=== PATIENT | male | born 1970 ===

== ENCOUNTER 2017-08-12 07:29 | Emergency (ER) | payer MEDICAID ==
--- NOTE | 2017-08-12 07:53 | C.PDOC ---
History Of Present Illness Patient is a 47 year old male, with no significant past medical history, presents to ED with complaints of feeling a lump sensation after eating in the center of his chest that developed yesterday afternoon and has been persistent since noon yesterday, exacerbated by food and eating, no alleviating factors. Notes that it feels worse after coughing, and with food intake. Denies diaphoresis, shortness of breath, abdominal pain, n/v/d, or fever. Time Seen by Provider: 08/12/17 07:51 Chief Complaint (Nursing): Abdominal Pain History Per: Patient History/Exam Limitations: no limitations Onset/Duration Of Symptoms: Days Current Symptoms Are (Timing): Still Present Associated Symptoms: denies: Nausea, Vomiting, Diarrhea, Loss Of Appetite, Back Pain Exacerbating Factors: Cough, Food Alleviating Factors: None Recent travel outside of the [place]: No Additional History Per: Patient Past Medical History Reviewed: Historical Data, Nursing Documentation, Vital Signs Vital Signs: Last Vital Signs Temp 97.5 F L 08/12/17 07:43 Pulse 83 08/12/17 07:43 Resp 18 08/12/17 07:43 BP 150/89 08/12/17 07:43 Pulse Ox 98 08/12/17 09:20 - Medical History PMH: No Chronic Diseases Family History: States: No Known Family Hx Review Of Systems Constitutional: Negative for: Fever, Chills Cardiovascular: Positive for: Chest Pain (lump sensation in his chest). Negative for: Palpitations, Edema, Light Headedness Respiratory: Negative for: Shortness of Breath, Sputum Gastrointestinal: Negative for: Nausea, Vomiting, Abdominal Pain, Diarrhea Neurological: Negative for: Headache, Dizziness Physical Exam - Physical Exam Appears: Non-toxic, No Acute Distress Skin: Normal Color, Warm, Dry Head: Atraumatic, Normacephalic Eye(s): bilateral: Normal Inspection Oral Mucosa: Moist, Other (no thrush) Tongue: Normal Appearing Lips: Normal Appearing Neck: Supple Chest: Symmetrical, No Tenderness Cardiovascular: Rhythm Regular, No Murmur Respiratory: Normal Breath Sounds, No Rales, No Rhonchi, No Wheezing Gastrointestinal/Abdominal: Bowel Sounds, Soft, No Tenderness Extremity: Normal ROM, No Pedal Edema, No Calf Tenderness Neurological/Psych: Oriented x3, Normal Speech, Normal Cognition, Normal Motor, Normal Sensation ED Course And Treatment - Laboratory Results Result Diagrams: 08/12/17 08:14 08/12/17 08:14 ECG: Interpreted By Me, Viewed By Me ECG Rhythm: Sinus Rhythm ECG Interpretation: Normal Rate From EC (bpm) O2 Sat by Pulse Oximetry: 98 (RA) Pulse Ox Interpretation: Normal Medical Decision Making Medical Decision Making: Blood work, EKG, CXR ordered and reviewed. Patient was given Maalox. 921 pm p[t feeling decreased discomfort after maalox, lab tests reviewed with patient; he has been told he is borderline diabetic, advised to f/u with pmd benny for hgA1c and fasting glucose. pt advised to keep food diary, avoid caffeine, spicy food, etc, take pepcid as prescribed and to f/u with pmd and gi. pt and family agree to and understands plan. Heart score reviewed; pt has 2, wiull d/c- normal ekg, low suspicion, no fam hx of cad, neg trop after 20 hrs continuous discomfort. Disposition Counseled Patient/Family Regarding: Studies Performed, Diagnosis, Need For Followup, Rx Given - Disposition Referrals: Benjamín Vu MD [Staff Provider] - Shannen Hoang MD [Non-Staff] - [facility] [Outside] Disposition: HOME/ ROUTINE Disposition Time: 09:27 Condition: STABLE Additional Instructions: Please follow up in medical clinic or with your PMD and have your blood glucose tested. FOllow up with bulk loader and with rubber curer- call for appointments. Keep food diary. Avoid bothersome foods, coffee. Take Pepcid as prescribed. Return to ER for chest pain, shortness of breath/difficulty breathing, or any other concerning symptoms. Prescriptions: Famotidine [Pepcid] 20 mg PO DAILY #14 tab Instructions: Diet for Ulcers and Gastritis (ED), Gastroesophageal Reflux Disease (ED) Forms: [facility] (Sami), General Discharge Instructions - Clinical Impression Clinical Impression: Reflux esophagitis - PA / MARKETING CONSULTANT / Resident Statement MD/DO has reviewed & agrees with the documentation as recorded. - Scribe Statement The provider has reviewed the documentation as recorded by the Cashibe Terrence Montero All medical record entries made by the Scribe were at my direction and personally dictated by me. I have reviewed the chart and agree that the record accurately reflects my personal performance of the history, physical exam, medical decision making, and the department course for this patient. I have also personally directed, reviewed, and agree with the discharge instructions and disposition.
[2017-08-12] MEDS ORDERED: Aluminum Hydroxide/Magnesium Hydroxide Susp (30 mL) ONE (08:01)
[2017-08-12] MEDS ORDERED: Aluminum Hydroxide/Magnesium Hydroxide Susp (30 mL) PO STA (08:07)
--- NOTE | 2017-08-12 08:19 | RAD ---
HISTORY: chest pain COMPARISON: No prior. TECHNIQUE: Chest PA and lateral FINDINGS: LUNGS: No active pulmonary disease. PLEURA: No significant pleural effusion identified. No pneumothorax apparent. CARDIOVASCULAR: Normal. OSSEOUS STRUCTURES: Thoracic spondylosis VISUALIZED UPPER ABDOMEN: Normal. OTHER FINDINGS: None. IMPRESSION: No active disease
[2017-08-12 08:27] LABS: BASO % 0.5 % (0.0-2.0); EOS # 0.2 K/uL (0.0-0.7); HEMATOCRIT 44.5 % (35.0-51.0); LYMPH # 1.2 K/uL (1.0-4.3); LYMPH % 14.4 % (20.0-40.0); MEAN CELL VOLUME 91.9 fL (80.0-94.0); MEAN CORPUSCULAR HEMOGLOBIN 32.3 pg (27.0-31.0); MEAN CORPUSCULAR HGB CONC 35.2 g/dL (33.0-37.0); MONO % 11.6 % (0.0-10.0); RED CELL DISTRIBUTION WIDTH 12.2 % (11.5-14.5); WHITE BLOOD COUNT 8.4 K/uL (4.8-10.8)
[2017-08-12 08:37] LABS: ALKALINE PHOSPHATASE 76 U/L (38-126); ALT/SGPT 65 U/L (21-72); AST/SGOT 53 U/L (17-59); BLOOD UREA NITROGEN 12 mg/dL (9-20); CALCIUM 8.6 mg/dl (8.6-10.4); CARBON DIOXIDE 31 mmol/L (22-30); CHLORIDE 94 mmol/L (98-107); GFR AFRICAN-AMERICAN > 60; GLUCOSE,RANDOM 171 mg/dL (75-110); POTASSIUM 3.9 mmol/L (3.6-5.2); SODIUM 133 mmol/L (132-148); TOTAL PROTEIN 8.5 g/dL (6.3-8.3)
[2017-08-12 08:41] LABS: ALB/GLOB RATIO 1.1 (1.0-2.1)
[2017-08-12 09:43] VITALS: BP 148/89; PULSE 72; RESP 16; TEMP 97.9; O2SAT 99
--- NOTE | 2017-08-13 23:33 | CARD ---
APPROVED REPORT EKG Measurement Heart [id number] <Conclusion> Normal sinus rhythm Normal ECG
== END 2017-08-12 09:42 | disposition home or self-care (01) ==
LOC: C.ER 07:29
DX: K21.0 Gastro-esophageal reflux disease with esophagitis (principal)

== ENCOUNTER 2017-11-02 09:24 | Emergency (ER) | payer MEDICAID ==
[2017-11-02 09:37] VITALS: BP 146/86; PULSE 99; RESP 20; TEMP 97.9; O2SAT 99
--- NOTE | 2017-11-02 10:08 | C.PDOC ---
History Of Present Illness 47yo male otherwise well, presents to ER with complaints of dental pain reported as 10/10 for the past couple days. Patient has not followed up with a dentist as he does not have medical insurance. He states the pain is localized to his upper left molar region with pain to his gums. He denies any fever, chills, nausea or vomiting. No other complaints. Time Seen by Provider: 11/02/17 09:39 Chief Complaint (Nursing): Dental Pain History Per: Patient History/Exam Limitations: no limitations Onset/Duration Of Symptoms: Days Current Symptoms Are (Timing): Still Present Pain Scale Rating Of: 10 Quality: Positive for: "Pain" Past Medical History Reviewed: Historical Data, Nursing Documentation, Vital Signs Vital Signs: Last Vital Signs Temp 97.9 F 11/02/17 09:32 Pulse 99 H 11/02/17 09:32 Resp 20 11/02/17 09:32 BP 146/86 11/02/17 09:32 Pulse Ox 99 11/02/17 10:08 - Medical History PMH: No Chronic Diseases Surgical History: No Surg Hx Family History: States: No Known Family Hx - Social History Hx Alcohol Use: Yes Hx Substance Use: No - Immunization History Hx Tetanus Toxoid Vaccination: No Hx Influenza Vaccination: No Hx Pneumococcal Vaccination: No Review Of Systems Except As Marked, All Systems Reviewed And Found Negative. Constitutional: Negative for: Fever, Chills ENT: Positive for: Other (dental pain) Gastrointestinal: Negative for: Nausea, Vomiting Physical Exam - Physical Exam Appears: Non-toxic Skin: Normal Color, Warm, Dry Head: Normacephalic Eye(s): bilateral: Normal Inspection Oral Mucosa: Moist Teeth: No Caries, Other (no significant abscess, fluctuance, drainage or broken teeth noted.) Gingiva: Normal Appearing, No Erythema, No Tender, No Abscess Neck: Normal ROM, Supple Chest: Symmetrical Cardiovascular: Rhythm Regular Respiratory: Normal Breath Sounds Neurological/Psych: Oriented x3 ED Course And Treatment O2 Sat by Pulse Oximetry: 99 (RA) Pulse Ox Interpretation: Normal Medical Decision Making Medical Decision Making: Impression: Dental pain Plan: -- Motrin 600 mg PO -- Penicillin 1000mg PO -- Tramadol 50 mg PO Patient to be discharged home with referral to a dentist, antibiotics and instructions to follow up in 2-3 days. Disposition Counseled Patient/Family Regarding: Diagnosis, Need For Followup, Rx Given - Disposition Disposition: HOME/ ROUTINE Disposition Time: 10:05 Condition: STABLE Additional Instructions: Follow up with a dentist Prescriptions: Ibuprofen [Motrin] 600 mg PO TID #15 tab Penicillin VK [Penicillin VK Tab] 500 mg PO Q6H #40 tab traMADol [Ultram] 50 mg PO TID #15 tab Instructions: Dental Pain (DC) Forms: General Discharge Instructions, [facility] (Setswana), Work Excuse - POA Present On Arrival: None - Clinical Impression Clinical Impression: Dental caries - Scribe Statement The provider has reviewed the documentation as recorded by the Scribe (Yumiko Lay) Provider Attestation: All medical record entries made by the Scribe were at my direction and personally dictated by me. I have reviewed the chart and agree that the record accurately reflects my personal performance of the history, physical exam, medical decision making, and the department course for this patient. I have also personally directed, reviewed, and agree with the discharge instructions and disposition.
== END 2017-11-02 10:22 | disposition home or self-care (01) ==
LOC: C.ER 09:24
DX: K02.9 Dental caries, unspecified (principal)

== ENCOUNTER 2018-07-04 08:26 | Emergency (ER) | payer MEDICAID ==
[2018-07-04 08:39] VITALS: BP 134/74; PULSE 99; RESP 20; TEMP 97.7; O2SAT 98
--- NOTE | 2018-07-04 09:09 | C.PDOC ---
History Of Present Illness 48 y/o male presents to ED for evaluation of left sided headache described as "few seconds of shock like pain" intermittently for the last 2 days. Notes he has had similar episodes multiple times over the past several years. Pt states he has remote history of trauma to that side of the head. Denies headache at this time. Denies visual changes, nausea, vomiting, dizziness, weakness, numbness, change in sensation, stiff neck, fever, chills, or any other associated symptoms at this time. Time Seen by Provider: 07/04/18 08:39 Chief Complaint (Nursing): Headache History Per: Patient History/Exam Limitations: no limitations Onset/Duration Of Symptoms: Days, Intermittent Episodes Current Symptoms Are (Timing): Still Present Quality: Sharp Preceeding Symptoms: None. denies: Visual Disturbances Associated Symptoms: denies: Photophobia, Blurred Vision, Nausea, Vomiting, Extremity Weakness Recent travel outside of the [place]: No Additional History Per: Patient Past Medical History Reviewed: Historical Data, Nursing Documentation, Vital Signs Vital Signs: Last Vital Signs Temp 97.7 F 07/04/18 08:35 Pulse 99 H 07/04/18 08:35 Resp 20 07/04/18 08:35 BP 134/74 07/04/18 08:35 Pulse Ox 98 07/04/18 08:35 Family History: States: Unknown Family Hx - Social History Hx Alcohol Use: Yes Hx Substance Use: No - Immunization History Hx Tetanus Toxoid Vaccination: No Hx Influenza Vaccination: No Hx Pneumococcal Vaccination: No Review Of Systems Constitutional: Negative for: Fever, Chills Eyes: Negative for: Vision Change Cardiovascular: Negative for: Chest Pain, Palpitations Respiratory: Negative for: Cough, Shortness of Breath Gastrointestinal: Negative for: Nausea, Vomiting, Abdominal Pain Musculoskeletal: Negative for: Neck Pain, Back Pain Neurological: Positive for: Headache. Negative for: Weakness, Numbness, Change in Speech, Dizziness Physical Exam - Physical Exam Appears: Non-toxic, No Acute Distress Skin: Normal Color, Warm, Dry Head: Atraumatic, Normacephalic Eye(s): bilateral: Normal Inspection, PERRL, EOMI Oral Mucosa: Moist Neck: Normal ROM, Supple Chest: Symmetrical Cardiovascular: Rhythm Regular, No Murmur Respiratory: Normal Breath Sounds, No Rales, No Rhonchi, No Wheezing Gastrointestinal/Abdominal: Soft, No Tenderness Extremity: Normal ROM, No Deformity Neurological/Psych: Oriented x3, Normal Speech, Normal Cognition, Normal Cranial Nerves, No Cerebellar Signs, Normal Motor, Normal Sensation, Normal Reflexes, Other (normal finger to nose, no pronator drift) ED Course And Treatment O2 Sat by Pulse Oximetry: 98 (on RA) Pulse Ox Interpretation: Normal Medical Decision Making Medical Decision Making: discussed with pt need to keep headache diary and f/u with pmd and neuro. pt understands plan. Disposition Counseled Patient/Family Regarding: Diagnosis, Need For Followup - Disposition Referrals: Lee Ann Burleson MD [Staff Provider] - Lavell Reveles MD [Staff Provider] - Disposition: HOME/ ROUTINE Disposition Time: 09:06 Condition: GOOD Additional Instructions: Please follow up with Dr Burleson, neurologist and with Dr Reveles, your pmd in the next few days. Keep headache diary to bring to doctor with you. Instructions: Headache, Adult (DC) Forms: [facility] (Ukrainian), General Discharge Instructions - Clinical Impression Clinical Impression: Headache - PA / OPTOMETRY DOCTOR / Resident Statement MD/DO has reviewed & agrees with the documentation as recorded. - Scribe Statement The provider has reviewed the documentation as recorded by the Scribe KP All medical record entries made by the Scribe were at my direction and personally dictated by me. I have reviewed the chart and agree that the record accurately reflects my personal performance of the history, physical exam, medical decision making, and the department course for this patient. I have also personally directed, reviewed, and agree with the discharge instructions and disposition.
== END 2018-07-04 09:15 | disposition home or self-care (01) ==
LOC: C.ER 08:26
DX: R51 Headache (principal)